=== PATIENT | male | born 1940 | race Caucasian/White ===

== ENCOUNTER → 2018-04-27 | Outpatient (CLI) | payer MEDICARE, OTHER ==
[~2018-04-27] MED LIST: ADULT TUSS100 MG/5 M; BISA10S; CHOL10002 PO; FOLI1 PO; IBUP600 PO; KRILL OIL 3501 EACH; Milk Of Ma400 MG/5 M; OLIVE LEAF EXT250 MG PO; STOOL SOFTENER100 MG PO
[2018-04-27 03:09] LABS: Bilirubin, Urine Neg (Neg); Blood, Urine 1+ (Neg); Glucose Qualitative, Urine Neg (Neg); Ketones, Urine 1+ (Neg); Leukocyte Esterase, Urine 3+ (Neg); Nitrite, Urine Pos (Neg); Protein, Urine Neg (Neg); Urobilinogen, Urine NORM (Normal); pH, Urine 6.5 (5.0-8.0)
[2018-04-27 03:26] LABS: Appearance, Urine Clear (Clear); Color, Urine Yellow (P-Yellow)
[2018-04-27 03:27] LABS: Bacteria Many /hpf; Red Blood Cells, Urine 0-2 /hpf (0-2); Squamous Epithelial Cells Not Seen /hpf (Few); White Blood Cells, Urine 50-100 /hpf (0-5)
== END | disposition home or self-care (01) ==
LOC: LAB RH 03:03 → EDSTATUS 11:16
DX: N39.0 Urinary tract infection, site not specified (principal)
CPT/HCPCS: 81001; 87077; 87086; 87186

== ENCOUNTER → 2018-09-03 | Outpatient (CLI) | payer MEDICARE, OTHER ==
[~2018-09-03] MED LIST changes: -ADULT TUSS100 MG/5 M; +ADULT TUSS100 MG/5 M PO; +AZIT250 PO; +BACLOFEN5 MG PO; -BISA10S; +BISA10S PR; +CALCIPOTRIENE60 G1 TOP; +CEFU500T30 PO; +COMBIVENT RESPIM4 GM INH; +Carbidopa-Levo1 EAC4 PO; +Carbidopa-Levo1 EACH PO; +Colace100 MG PO; +DESO.05TL TOP; +FISH OIL 500 M1 EAC1 PO; +Halobetasol Pro15 GM TOP; +KETO15TC TOP; +METR500 PO; -Milk Of Ma400 MG/5 M; +Milk Of Ma400 MG/5 M PO; -STOOL SOFTENER100 MG PO
[2018-09-03 12:36] LABS: Bilirubin, Urine Neg (Neg); Blood, Urine 4+ (Neg); Glucose Qualitative, Urine Neg (Neg); Ketones, Urine 1+ (Neg); Leukocyte Esterase, Urine 3+ (Neg); Nitrite, Urine Pos (Neg); Protein, Urine 1+ (Neg); Specific Gravity, Urine 1.015 (1.003-1.022); Urobilinogen, Urine NORM (Normal); pH, Urine 6.5 (5.0-8.0)
[2018-09-03 12:55] LABS: Appearance, Urine Hazy (Clear); Color, Urine Yellow (P-Yellow)
[2018-09-03 12:57] LABS: Bacteria Few /hpf; Squamous Epithelial Cells Rare /hpf (Few)
== END | disposition home or self-care (01) ==
LOC: LAB RH 12:31 → EDSTATUS 15:33
DX: N39.0 Urinary tract infection, site not specified (principal)
CPT/HCPCS: 81001; 87077; 87086; 87186

== ENCOUNTER 2018-10-11 20:13 | Inpatient (IN) | payer MEDICARE, OTHER ==
[~2018-10-11] VITALS: Ht 165.1 cm; Wt 68.0 kg
[~2018-10-11 20:13] MED LIST changes: -AZIT250 PO; -BACLOFEN5 MG PO; -CALCIPOTRIENE60 G1 TOP; -CEFU500T30 PO; -COMBIVENT RESPIM4 GM INH; -Carbidopa-Levo1 EAC4 PO; -Carbidopa-Levo1 EACH PO; -DESO.05TL TOP; -FISH OIL 500 M1 EAC1 PO; -Halobetasol Pro15 GM TOP; -KETO15TC TOP; -METR500 PO
[2018-10-11 20:49] LABS: BASOPHILS ABSOLUTE AUTO 0.02 K/mm3 (0.00-0.23); BASOPHILS PERCENT AUTO 0 % (0-2); EOSINOPHILS ABSOLUTE AUTO 0.04 K/mm3 (0.00-0.68); EOSINOPHILS PERCENT AUTO 0 % (0-6); Hemoglobin 13.2 g/dL (13.5-17.5); IMMATURE GRAN ABSOLUTE AUTO 0.13 K/mm3 (0.00-0.10); IMMATURE GRAN PERCENT AUTO 1 % (0-1); LYMPHOCYTES ABSOLUTE AUTO 0.69 K/mm3 (0.84-5.20); LYMPHOCYTES PERCENT AUTO 6 % (21-46); MONOCYTES ABSOLUTE AUTO 1.05 K/mm3 (0.16-1.47); MONOCYTES PERCENT AUTO 9 % (4-13); Mean Corpuscular HGB 32.4 pg (26.0-34.0); Mean Corpuscular Volume 98 fL (80-100); Mean Platelet Volume 10.9 fL (9.1-12.4); NEUTROPHILS ABSOLUTE AUTO 9.79 K/mm3 (1.96-9.15); NEUTROPHILS PERCENT AUTO 84 % (41-73); Platelet Count 231 K/mm3 (150-400); RDW Coefficient Variation 12.5 % (11.7-14.2); RDW Standard Deviation 45.4 fL (35.1-46.3); Red Blood Cell Count 4.08 M/mm3 (4.30-5.90); White Blood Cell Count 11.72 K/mm3 (4.00-11.30)
[2018-10-11 21:07] LABS: Albumin, Blood 2.4 g/dL (3.4-5.0); Albumin/Globulin Ratio 0.6 (0.8-1.8); Alk Phos 110 U/L (50-136); Anion Gap 5 mmol/L (6-16); Aspartate Aminotrans (AST/SGOT 8 U/L (12-37); Bilirubin, Total 0.5 mg/dL (0.1-1.0); Blood Urea Nitrogen 23 mg/dL (8-24); Bun/Creatinine Ratio 30.6 (12.0-20.0); CO2, Blood 30 mmol/L (21-32); Calcium, Blood 8.1 mg/dL (8.5-10.1); Chloride, Blood 107 mmol/L (98-108); Creatinine, Blood 0.75 mg/dL (0.60-1.20); Globulin, Blood 4.1 g/dL (2.2-4.0); Glomerular Filtration Rate >60 (60-); Glucose, Blood 135 mg/dL (70-99); Sodium, Blood 142 mmol/L (136-145); Total Protein, Blood 6.5 g/dL (6.4-8.2)
[2018-10-11 21:11] LABS: Alanine Aminotransfer (ALT/SGP <6 U/L (12-78)
[2018-10-11] MEDS ORDERED: FISH OIL 500 M1 EAC1 PO (21:21)
[2018-10-11] MEDS ORDERED: BACLOFEN5 MG PO (21:23)
[2018-10-11] MEDS ORDERED: Carbidopa-Levo1 EAC4 PO (21:24)
[2018-10-11] MEDS ORDERED: Carbidopa-Levo1 EACH PO (21:25)
--- NOTE | 2018-10-12 05:10 | NUR ---
Pt arrivied via stretcher to room 344 from the ED. Pt is a [facility] resident. Pt was given Ativan in the ED and he is calm and sleeping. Pt does have a harsh deep loose cough that is non productive. Breath sounds are course and have rhonchi. Pt has psoriasis which is all over his body but most prominent on legs and arms. Pt is on 2 liters O2 via NC in his mouth because he is a mouth breather. Pt O2 sat is 95%. Pt is wearing attends and was incontinent of a very lg urine. IV fluids as ordered. Pt is receiving IV ABX, Pt is comfort care.
--- NOTE | 2018-10-12 09:45 | NUR ---
PATIENT INCONTINENT OF STOOL AND URINE. HAS A LOUD PRODUCTIVE COUGH, ABLE TO CLEAR HIS THROAT WITH COUGH. MOANING. DOES NOT APPEAR IN PAIN OR DISCOMFORT. PULLING AT ATTENDS. WILL CONTINUE TO EVALUATE PATIENT COMFORT, VS. ATTEMPTING TO TALK WITH STAFF.
--- NOTE | 2018-10-12 10:48 | NUR ---
BED BATH GIVEN. ATIVAN FOR GROANING, MOANING, CALLING OUT. PATIENT APPEARS MUCH MORE COMFORTABLE. SLEEPING. NEW ATTENDS IN PLACE, NEW GOWN IN PLACE.
--- NOTE | 2018-10-12 14:34 | NUR ---
PATIENT VERY RESTLESS GIVEN ATIVAN (SEE PREVIOUS NOTE). RESTING.
--- NOTE | 2018-10-12 14:35 | NUR ---
PATIENT PULLING ON IV LINES. SLAPPING AT STAFF. ASKED IF HE WAS IN PAIN, DID NOT ANSWER. MOANS. GIVEN IV PAIN MEDICATION. BACK ASLEEP.
--- NOTE | 2018-10-12 15:30 | NUR ---
PALLIATIVE CARE NURSE CAME BY. STATED CONTINUE WITH IV FLUIDS. IV AL IBUPROFEN IF PATIENT SEEMS UNCOMFORTABLE. A GOAL TO BE ABLE TO HAVE PATIENT TAKE HIS PARKINSONS MEDICATIONS ONCE ALERT ENOUGHT TO TOLERATE THIS. RESPONDS TO STERNAL RUB AND MOVEMENT.
--- NOTE | 2018-10-12 16:57 | NUR ---
SHIFT SUMMARY PATIENT GRABS AT STAFF DURING TURNS, MOVEMENTS. PULLS AT IV LINES. CURRENTLY PATIENT IS ASLEEP. CONTINUING TO MONITOR FOR ANY DISCOMFORT. NO ACUTE ISSUES NOTED. BREATHING TREATMENTS PER RT.
--- NOTE | 2018-10-12 17:21 | NUR ---
Multiple visits to patient. Nursing called pt next of kin to review plan of care. Called [facility] nursing staff to see what patients functional level has been and if any decline. They state that until this bout of pneumonia pt was up in hallway in wheelchair. He liked to sing to the staff and was active. Pt has coarse cough he was on oral antibiotics. Staff states they had to finely crush his meds and give them very slowly. pt aggitated pulling at equipment. BP has improved pt voiding. Pt somulent from medications and we switched to tylenol. Pt hasd some good rest today. Stimulated patient he was able to advise that he was in hospital. Theraputic touch and told him to rest today from all the coughing and recover from his fever. Advised pt we will get him up today. Plan is increased pulmonary care and get him back on his parkinsons meds he is pretty stiff. goal is to mobalize him. Will discuss with caregiver new POLST. pt care needs and wishes may be better expressed with limited treatments versus comfort only for respiritory support until he is more advanced in his disease.
--- NOTE | 2018-10-12 17:37 | NUR ---
Pal spiritual Care initial note: Mr. Lock was alone in room and did not awaken to voice or touch. Per chart, he is listed as jewish. Prayer provided at bedside. Breaths even. He appears comfortable and well cared-for by nursing. I will remain available to pt and family.
--- NOTE | 2018-10-12 17:58 | NUR ---
SUPPOSITORY IBUPROPHEN PLACED PER PALLIATIVE CARE RECOMMENDATIONS. ATTENDS CHANGED. ORAL CARE PERFORMED.
[2018-10-12] MEDS ORDERED: AZIT250 PO (22:17)
[2018-10-12] MEDS ORDERED: CALCIPOTRIENE60 G1 TOP (22:21)
[2018-10-12] MEDS ORDERED: DESO.05TL TOP (22:27)
[2018-10-12] MEDS ORDERED: Halobetasol Pro15 GM TOP (22:30)
[2018-10-12] MEDS ORDERED: COMBIVENT RESPIM4 GM INH (22:32)
[2018-10-12] MEDS ORDERED: KETO15TC TOP (22:34)
--- NOTE | 2018-10-13 05:30 | NUR ---
SHIFT SUMMARY PT ON CC. AGITATED AND RESTLESS. MEDICATED FOR ANXIETY AND PAIN PER EMAR. INCONT AND WON'T STOP PULLING OFF HIS BRIEF. ONLY DOZED OFF AND ON T/O NIGHT. BED ALARM IN USE.
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
--- NOTE | 2018-10-13 08:16 | NUR ---
ABLE TO GIVE PATIENT MEDICATION IN PUDDING. HE IS AGGITATED AND COMBATIVE. CONTINUING TO PROVIDE WORDS OF ENCOURAGEMENT. DROOLING, WIPED MOUTH. PATIENT IS UP IN CHAIR LISTENING TO RELAXING MUSIC. IV ANTIBIOTICS BEING ADMINISTERED.
--- NOTE | 2018-10-13 11:30 | NUR ---
PATIENT UP IN CHAIR. ATE SOME OF BREAKFAST. RECEIVING IV FLUIDS.
--- NOTE | 2018-10-13 14:45 | NUR ---
UP IN CHAIR FOR BREAKFAST AND LUNCH. 3 PERSON MAX ASSIST. UNABLE TO LENGTHEN LEGS TO TRANSFER.
--- NOTE | 2018-10-13 14:46 | NUR ---
ATTENDS CHANGED FOR INCONTINENT EPISODES. MEDICATED PER EMAR. TOLERATING PILLS WITH PUDDING.
--- NOTE | 2018-10-13 14:47 | NUR ---
CALLED FOR A BREATHING TX.
--- NOTE | 2018-10-14 04:00 | NUR ---
SHIFT SUMMARY PT AWAKE MUCH OF THE NIGHT UNTIL APPROX 0300 WHEN HE FINALLY FELL ASLEEP. FREQUENT MOIST SOUNDING NON PRODUCTIVE COUGH. PT UNABLE TO BRING PHLEGM UP ENOUGH TO COUGH IT OUT. ATTEMPTED TO SUCTION PT BUT PT WOULD NOT ALLOW. O2 SATS REMAINED IN THE MID 90'S ON RA. PT DOES BECOME AGITATED AT TIMES WHEN ATTEMPTING CARE BUT CALMS AFTER. DRY RED SPOTS SCATTERED THROUGHOUT BODY. PT WILL ANSWER SIMPLE QUESTIONS AND CAN AT TIMES LET HIS NEEDS BE KNOWN. PT IS VERY SLOW TO RESPOND THOUGH AND NEEDS ALLOWED TIME TO THINK AND ANSWER QUESTIONS. INCONTINENT THROUGH MUCH OF THE NIGHT, REQUESTED URINAL X'S 2 BUT HAD ALREADY GONE IN HIS ATTENDS. APPEARED COMFORTABLE, EVEN WITHOUT SLEEPING WELL. WILL CONTINUE TO MONITOR.
--- NOTE | 2018-10-14 09:56 | NUR ---
PATIENT STATED HE WAS UNCOMFORTABLE IN BED. PMP CERTIFIED PROJECT MANAGER AND RN GOT PATIENT UP IN CHAIR. PATIENT WORKED WITH SPEECH THERAPY, SEE ORDERS FOR PRECAUTIONS. PATIENT IS MUCH MORE ALERT AND CONVERSIVE TODAY.
[2018-10-14] MEDS ORDERED: METR500 PO (11:44)
[2018-10-14] MEDS ORDERED: CEFU500T30 PO (11:44)
--- NOTE | 2018-10-14 14:48 | NUR ---
CHANGED ATTENDS/GOWN. PREPARING FOR TRANSFER BACK TO FACILITY
--- NOTE | 2018-10-14 15:28 | NUR ---
PATIENT DISCHARGED HOME VIA W/C AND [facility]. ATTENDS CHANGED. GOWN CHANGED.
== END 2018-10-14 15:20 | DRG 871 ==
LOC: ER 20:13 → ERHOLD 23:40 → MEDS 23:40 → ENPENDDIS 10-14 12:39 → MEDS 10-14 15:20
PROVIDERS: Emergency Medicine; ADMIT Internal Medicine
DX: A41.9 Sepsis, unspecified organism (principal); J96.01 Acute respiratory failure with hypoxia; J69.0 Pneumonitis due to inhalation of food and vomit; R65.20 Severe sepsis without septic shock; Z66 Do not resuscitate; Z51.5 Encounter for palliative care; G20 Parkinson's disease; F02.80 Dementia in other diseases classified elsewhere, unspecified severity, without behavioral disturbance, psychotic disturbance, mood disturbance, and anxiety; Z88.5 Allergy status to narcotic agent; Z79.899 Other long term (current) drug therapy
CPT/HCPCS: 31720; 36415; 71045; 80053; 83605; 85025; 87040; 92610; 93005; 93010; 94640; 94760; 96365; 96368; 96375; 99285-25; J0456; J0696; J2060; J2543; J3010; J3370; J7030; J7050

== ENCOUNTER → 2019-10-24 | Outpatient (CLI) | payer MEDICARE, OTHER ==
[~2019-10-24] MED LIST changes: +AZIT250 PO; +BACLOFEN5 MG PO; +CALCIPOTRIENE60 G1 TOP; +CEFU500T30 PO; +COMBIVENT RESPIM4 GM INH; +Carbidopa-Levo1 EAC4 PO; +Carbidopa-Levo1 EACH PO; +DESO.05TL TOP; +FISH OIL 500 M1 EAC1 PO; +Halobetasol Pro15 GM TOP; +KETO15TC TOP; +METR500 PO
[2019-10-24 15:08] LABS: BASOPHILS ABSOLUTE AUTO 0.02 K/mm3 (0.00-0.23); BASOPHILS PERCENT AUTO 0 % (0-2); EOSINOPHILS ABSOLUTE AUTO 0.15 K/mm3 (0.00-0.68); EOSINOPHILS PERCENT AUTO 2 % (0-6); Hemoglobin 16.2 g/dL (13.5-17.5); IMMATURE GRAN ABSOLUTE AUTO 0.03 K/mm3 (0.00-0.10); IMMATURE GRAN PERCENT AUTO 0 % (0-1); LYMPHOCYTES PERCENT AUTO 18 % (21-46); MONOCYTES ABSOLUTE AUTO 0.64 K/mm3 (0.16-1.47); MONOCYTES PERCENT AUTO 9 % (4-13); Mean Corpuscular HGB 32.5 pg (26.0-34.0); Mean Corpuscular HGB Conc 33.1 g/dL (31.5-36.5); Mean Corpuscular Volume 98 fL (80-100); Mean Platelet Volume 12.1 fL (9.1-12.4); NEUTROPHILS ABSOLUTE AUTO 5.06 K/mm3 (1.96-9.15); NEUTROPHILS PERCENT AUTO 70 % (41-73); Platelet Count 191 K/mm3 (150-400); RDW Coefficient Variation 12.6 % (11.7-14.2); RDW Standard Deviation 45.2 fL (35.1-46.3); Red Blood Cell Count 4.99 M/mm3 (4.30-5.90)
[2019-10-24 16:01] LABS: Alanine Aminotransfer (ALT/SGP 39 U/L (12-78); Albumin, Blood 3.1 g/dL (3.4-5.0); Albumin/Globulin Ratio 0.9 (0.8-1.8); Alk Phos 116 U/L (50-136); Anion Gap 4 mmol/L (6-16); Aspartate Aminotrans (AST/SGOT 18 U/L (12-37); Bilirubin, Total 0.6 mg/dL (0.1-1.0); Blood Urea Nitrogen 24 mg/dL (8-24); Bun/Creatinine Ratio 23.3 (12.0-20.0); CO2, Blood 33 mmol/L (21-32); Calcium, Blood 8.5 mg/dL (8.5-10.1); Chloride, Blood 106 mmol/L (98-108); Creatinine, Blood 1.03 mg/dL (0.60-1.20); Globulin, Blood 3.4 g/dL (2.2-4.0); Glomerular Filtration Rate >60 (60-); Glucose, Blood 94 mg/dL (70-99); Potassium, Blood 4.2 mmol/L (3.5-5.5); Sodium, Blood 143 mmol/L (136-145); Total Protein, Blood 6.5 g/dL (6.4-8.2)
== END | disposition home or self-care (01) ==
LOC: LAB RH 14:20 → EDSTATUS 15:20
PROVIDERS: Family Medicine
DX: G20 Parkinson's disease (principal)
CPT/HCPCS: 80053; 85025

== ENCOUNTER → 2020-04-25 | Outpatient (CLI) | payer MEDICARE, OTHER ==
[2020-04-25 11:24] LABS: Alanine Aminotransfer (ALT/SGP 27 U/L (12-78); Albumin, Blood 3.4 g/dL (3.4-5.0); Albumin/Globulin Ratio 0.9 (0.8-1.8); Alk Phos 149 U/L (50-136); Anion Gap 3 mmol/L (6-16); Aspartate Aminotrans (AST/SGOT 25 U/L (12-37); Bilirubin, Total 0.4 mg/dL (0.1-1.0); Blood Urea Nitrogen 29 mg/dL (8-24); CO2, Blood 33 mmol/L (21-32); Chloride, Blood 106 mmol/L (98-108); Creatinine, Blood 0.76 mg/dL (0.60-1.20); Globulin, Blood 3.6 g/dL (2.2-4.0); Glomerular Filtration Rate >60 (60-); Glucose, Blood 73 mg/dL (70-99); Potassium, Blood 3.8 mmol/L (3.5-5.5); Sodium, Blood 142 mmol/L (136-145)
== END | disposition home or self-care (01) ==
LOC: LAB RH 08:23 → EDSTATUS 11:10
PROVIDERS: Family Medicine
DX: G20 Parkinson's disease (principal)
CPT/HCPCS: 80053

== ENCOUNTER → 2020-09-28 | Outpatient (CLI) | payer MEDICARE, OTHER ==
[2020-09-28 12:47] LABS: Appearance, Urine Cloudy (Clear); Bilirubin, Urine Neg (Neg); Blood, Urine 2+ (Neg); Color, Urine Yellow (P-Yellow); Glucose Qualitative, Urine Neg (Neg); Ketones, Urine Neg (Neg); Leukocyte Esterase, Urine 1+ (Neg); Nitrite, Urine Pos (Neg); Protein, Urine 1+ (Neg); Specific Gravity, Urine 1.015 (1.003-1.022); Urobilinogen, Urine NORM (Normal)
[2020-09-28 12:51] LABS: Hematocrit 50.8 % (37.0-53.0); Hemoglobin 16.3 g/dL (13.5-17.5); Mean Corpuscular HGB 31.5 pg (26.0-34.0); Mean Corpuscular HGB Conc 32.1 g/dL (31.5-36.5); Mean Corpuscular Volume 98 fL (80-100); Mean Platelet Volume 12.2 fL (9.1-12.4); Platelet Count 221 K/mm3 (150-400); RDW Coefficient Variation 13.1 % (11.7-14.2); RDW Standard Deviation 47.1 fL (35.1-46.3); Red Blood Cell Count 5.18 M/mm3 (4.30-5.90); White Blood Cell Count 7.48 K/mm3 (4.00-11.30)
[2020-09-28 14:41] LABS: Bacteria Many /hpf; Squamous Epithelial Cells Rare /hpf (Few); White Blood Cells, Urine 25-50 /hpf (0-5)
[2020-09-28 14:42] LABS: Amorphous Mod (0-Heavy)
== END ==
LOC: EDSTATUS 09:23 → LAB RH 11:39
PROVIDERS: Internal Medicine
DX: L40.9 Psoriasis, unspecified (principal); G20 Parkinson's disease; R29.6 Repeated falls; Z88.6 Allergy status to analgesic agent
CPT/HCPCS: 81001; 85027; 87077; 87086; 87186

== ENCOUNTER → 2020-11-12 | Outpatient (CLI) | payer MEDICARE, OTHER ==
[2020-11-12 13:21] LABS: Source, Urine Clean Catch
[2020-11-12 13:26] LABS: Appearance, Urine Clear (Clear); BASOPHILS ABSOLUTE AUTO 0.05 K/mm3 (0.00-0.23); BASOPHILS PERCENT AUTO 0 % (0-2); Bilirubin, Urine Neg (Neg); Blood, Urine 1+ (Neg); Color, Urine Yellow (P-Yellow); EOSINOPHILS ABSOLUTE AUTO 0.14 K/mm3 (0.00-0.68); EOSINOPHILS PERCENT AUTO 1 % (0-6); Glucose Qualitative, Urine Neg (Neg); Hematocrit 48.1 % (37.0-53.0); Hemoglobin 15.8 g/dL (13.5-17.5); IMMATURE GRAN ABSOLUTE AUTO 0.05 K/mm3 (0.00-0.10); IMMATURE GRAN PERCENT AUTO 0 % (0-1); Ketones, Urine 2+ (Neg); LYMPHOCYTES ABSOLUTE AUTO 1.68 K/mm3 (0.84-5.20); LYMPHOCYTES PERCENT AUTO 13 % (21-46); Leukocyte Esterase, Urine 2+ (Neg); MONOCYTES ABSOLUTE AUTO 1.66 K/mm3 (0.16-1.47); MONOCYTES PERCENT AUTO 13 % (4-13); Mean Corpuscular HGB 31.5 pg (26.0-34.0); Mean Corpuscular HGB Conc 32.8 g/dL (31.5-36.5); Mean Corpuscular Volume 96 fL (80-100); Mean Platelet Volume 11.4 fL (9.1-12.4); NEUTROPHILS ABSOLUTE AUTO 9.01 K/mm3 (1.96-9.15); NEUTROPHILS PERCENT AUTO 72 % (41-73); Nitrite, Urine Neg (Neg); Platelet Count 161 K/mm3 (150-400); Protein, Urine 1+ (Neg); RDW Coefficient Variation 14.1 % (11.7-14.2); RDW Standard Deviation 49.9 fL (35.1-46.3); Red Blood Cell Count 5.01 M/mm3 (4.30-5.90); Specific Gravity, Urine 1.025 (1.003-1.022); Urobilinogen, Urine NORM (Normal); White Blood Cell Count 12.59 K/mm3 (4.00-11.30)
[2020-11-12 13:35] LABS: Amorphous Light (0-Heavy); Bacteria Many /hpf; Red Blood Cells, Urine 0-2 /hpf (0-2)
[2020-11-12 13:36] LABS: Squamous Epithelial Cells Few /hpf (Few)
[2020-11-12 13:45] LABS: Bun/Creatinine Ratio 25.6 (12.0-20.0); Calcium, Blood 9.8 mg/dL (8.5-10.1); Creatinine, Blood 1.25 mg/dL (0.60-1.20); Potassium, Blood 4.4 mmol/L (3.5-5.5)
== END | disposition home or self-care (01) ==
LOC: EDSTATUS 12:01 → LAB RH 13:18
PROVIDERS: Internal Medicine
DX: I10 Essential (primary) hypertension (principal); M62.81 Muscle weakness (generalized)
CPT/HCPCS: 80048; 81001; 85025; 87086